=== PATIENT | female | born 1990 | race Two or more races ===

== ENCOUNTER 2017-11-30 14:30 | Inpatient (IN) | payer OTHER ==
[~2017-11-30] VITALS: Ht 162.6 cm; Wt 98.0 kg
[2017-12-05] MEDS ORDERED: PRENATAL TABLE1 EAC3 PO (10:01)
[2017-12-05] MEDS ORDERED: IRON325 MG PO (10:02)
== END 2017-12-07 18:20 | DRG 775 ==
LOC: OB/GYN 12-05 08:46 → LDR 12-05 08:46 → OB/GYN 12-05 23:21 → LDR 12-15 14:30
PROC: 10E0XZZ Delivery of Products of Conception, External Approach (ICD-10-PCS; principal; 2017-12-05)
PROC: 0KQM0ZZ Repair Perineum Muscle, Open Approach (ICD-10-PCS; 2017-12-05)
PROC: 3E0P7VZ Introduction of Hormone into Female Reproductive, Via Natural or Artificial Opening (ICD-10-PCS; 2017-12-05)
PROC: 3E033VJ Introduction of Other Hormone into Peripheral Vein, Percutaneous Approach (ICD-10-PCS; 2017-12-05)
PROC: 4A033R1 Measurement of Arterial Saturation, Peripheral, Percutaneous Approach (ICD-10-PCS; 2017-12-05)
PROC: 4A1HXCZ Monitoring of Products of Conception, Cardiac Rate, External Approach (ICD-10-PCS; 2017-12-05)
DX: O70.1 Second degree perineal laceration during delivery (principal); Z37.0 Single live birth; O24.420 Gestational diabetes mellitus in childbirth, diet controlled; Z3A.38 38 weeks gestation of pregnancy; Z22.330 Carrier of Group B streptococcus

== ENCOUNTER 2024-06-18 08:35 | Outpatient (CLI) | payer OTHER ==
[~2024-06-18 08:35] MED LIST: IRON325 MG PO; PRENATAL TABLE1 EAC3 PO
== END 2024-06-18 08:41 | disposition home or self-care (01) ==
LOC: PRENATAL 08:35
PROVIDERS: ATTEND Obstetrics & Gynecology Maternal & Fetal Medicine
DX: O36.80X0 Pregnancy with inconclusive fetal viability, not applicable or unspecified (principal); Z36.82 Encounter for antenatal screening for nuchal translucency; Z14.8 Genetic carrier of other disease; Z3A.13 13 weeks gestation of pregnancy

== ENCOUNTER 2024-07-31 22:04 | Emergency (ER) | payer OTHER ==
[~2024-07-31] VITALS: Ht 162.6 cm; Wt 104.3 kg
[2024-07-31 22:23] VITALS: BP 126/82; O2SAT 98
[2024-07-31] MEDS ORDERED: PRENATAL + DHA1 EAC1 (22:23)
[2024-07-31] MEDS ORDERED: GUAIFEN/DEXTROMETHORPHAN/PE 10 ML BLIST.PACK PO ONE ×2 (23:39→23:45)
[2024-08-01 00:09] LABS: PH,URINE 5.5 (5.0-8.0); URINE APPEARANCE Clear; URINE BILIRRUBIN Negative (NEGATIVE); URINE BLOOD Trace; URINE COLOR Dark Yellow; URINE GLUCOSE Negative (NEGATIVE); URINE KETONE Negative (NEGATIVE); URINE LEUKOCYTE Trace; URINE NITRATE Negative; URINE PROTEIN 30 (NEGATIVE)
[2024-08-01 00:13] LABS: URINE BACTERIA 6589.8 uL (0.0-1933); URINE EPITHELIAL CELLS 160.8 uL (0.0-38.8); URINE RBC 42.1 uL (0.0-20.8); URINE WBC 494.1 uL (0.0-23.2)
[2024-08-01 00:16] LABS: HEMATOCRIT 31.9 % (36.0-45.00); HEMOGLOBIN 10.4 g/dL (12.0-15.00); MEAN CELL VOLUME 80.2 fL (80.00-100.00); MEAN CORPUSCULAR HEMOGLOBIN 26.2 pg (27.00-32.0); MEAN CORPUSCULAR HGB CONC 32.6 g/dl (32.0-36.0); PLATELET COUNT 222 K/uL (150-450); RED BLOOD COUNT 3.98 M/uL (4.00-6.00); RED CELL DISTRIBUTION WIDTH 15.9 % (11.5-14.5)
[2024-08-01] MEDS ORDERED: ACETAMINOPHEN 500 MG GEL..CAP PO ONE (00:28)
[2024-08-01 00:33] LABS: URINE CAST 1.03 uL (0.0-1.40)
[2024-08-01 00:37] LABS: COVID-19 AG NEGATIVE (NEGATIVE)
[2024-08-01 00:42] LABS: INFLUENZA A AG NEGATIVE (NEGATIVE)
[2024-08-01 00:47] LABS: CALCIUM 9.1 mg/dL (8.5-10.1); CREATININE SERUM 0.47 mg/dL (0.55-1.02); GFR 153.56; POTASSIUM 3.63 mEq/L (3.5-5.1)
[2024-08-01] MEDS ORDERED: CEFTRIAXONE SODIUM 1,000 MG VIAL IM STA (01:10)
[2024-08-01] MEDS ORDERED: CEPHALEXIN500 MG PO (01:12)
[2024-08-01] MEDS ORDERED: CEFTRIAXONE SODIUM 1,000 MG VIAL ONE (01:12)
[2024-08-01] MEDS ORDERED: LIDOCAINE HCL 1% 10ML VIAL ONE (01:12)
== END 2024-08-01 01:19 ==
LOC: ER 22:05
PROVIDERS: Emergency Medicine
DX: J06.9 Acute upper respiratory infection, unspecified (principal); N39.0 Urinary tract infection, site not specified; R11.10 Vomiting, unspecified; Z20.822 Contact with and (suspected) exposure to COVID-19

== ENCOUNTER 2024-09-04 11:58 | Outpatient (CLI) | payer OTHER ==
[~2024-09-04 11:58] MED LIST changes: +CEPHALEXIN500 MG PO; +PRENATAL + DHA1 EAC1
== END 2024-09-04 11:59 | disposition home or self-care (01) ==
LOC: PRENATAL 11:58
PROVIDERS: ATTEND Obstetrics & Gynecology Maternal & Fetal Medicine
DX: O44.00 Complete placenta previa NOS or without hemorrhage, unspecified trimester (principal); Z3A.24 24 weeks gestation of pregnancy

== ENCOUNTER 2024-09-28 10:40 | Outpatient (CLI) | payer OTHER | END 2024-09-28 10:41 | disposition home or self-care (01) | LOC: NUCLEAR 10:40 | PROVIDERS: ATTEND Obstetrics & Gynecology | DX: I87.2 Venous insufficiency (chronic) (peripheral) (principal); I82.90 Acute embolism and thrombosis of unspecified vein ==

== ENCOUNTER → 2024-10-11 10:34 | Outpatient (CLI) | payer OTHER | END | disposition home or self-care (01) | LOC: PRENATAL 10:34 | PROVIDERS: ATTEND Obstetrics & Gynecology Maternal & Fetal Medicine | DX: O26.849 Uterine size-date discrepancy, unspecified trimester (principal); O36.8199 Decreased fetal movements, unspecified trimester, other fetus; Z3A.30 30 weeks gestation of pregnancy ==

== ENCOUNTER → 2024-11-22 11:01 | Outpatient (CLI) | payer OTHER | END | disposition home or self-care (01) | LOC: PRENATAL 11:01 | PROVIDERS: ATTEND Obstetrics & Gynecology Maternal & Fetal Medicine | DX: O26.849 Uterine size-date discrepancy, unspecified trimester (principal); O36.8199 Decreased fetal movements, unspecified trimester, other fetus; Z3A.35 35 weeks gestation of pregnancy ==

== ENCOUNTER 2024-12-24 09:54 | Outpatient (CLI) | payer OTHER ==
[~2024-12-24] VITALS: Ht 162.6 cm; Wt 107.0 kg
[2024-12-24 07:45] VITALS: BP 108/66
[2024-12-24 11:12] VITALS: BP 108/66
== END 2024-12-24 11:46 | disposition home or self-care (01) ==
LOC: OBS/DEL 09:54
PROVIDERS: ATTEND Obstetrics & Gynecology
DX: O47.1 False labor at or after 37 completed weeks of gestation (principal); Z3A.39 39 weeks gestation of pregnancy